=== PATIENT | female | born 1950 | race Caucasian/White ===

== ENCOUNTER 2016-03-14 11:34 | Emergency (ER) | payer OTHER ==
--- NOTE | 2016-03-14 13:16 | REP ---
Noncontrast brain CT study: History: Head injury in a fall. Findings: Digital lateral supervising deputy radiograph is unremarkable. Bone window settings demonstrate an intact bony calvarium. No skull fracture is seen. There is a small scalp hematoma noted at the vertex in the midline posteriorly. The visualized paranasal sinuses are clear. There is mild vascular calcification in the distal carotid arteries bilaterally. There is no evidence of intracranial hemorrhage. No extra-axial fluid collection is seen. No mass, infarct, or midline shift is seen. The santana-white differentiation pattern is normal. Impression: Scalp hematoma at the vertex. No skull fracture or intracranial injury. Some vascular calcification seen. Signed by Ramón Haywood MD 03/14/2016 01:57 P
--- NOTE | 2016-03-14 13:18 | REP ---
Sacrum and coccyx series: Three views. History: Tail bone pain after fall. Findings: Frontal and lateral views of the sacrum and coccyx show a radiolucent line through the lower sacrum consistent with a distal sacral fracture. No displacement is seen. No malalignment. The coccyx appears intact. There is also a fracture of the inferior pubic ramus of the right pelvis. This could be old although it is a new radiographic finding when compared with the right hip study from May 02, 2010. There are degenerative changes in the lower lumbar spine. There is central pelvic calcification consistent with uterine leiomyomatous calcification. Impression: Suspect nondisplaced distal sacral fracture. Right inferior pubic ramus fracture may be old. Signed by Ramón Haywood MD 03/14/2016 01:57 P
--- NOTE | 2016-03-14 13:19 | REP ---
Left wrist series: Four views. History: Injury in a fall. 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 There is mild diffuse osteopenia. No fracture or subluxation is seen. Impression: No fracture noted. Signed by Ramón Haywood MD 03/14/2016 01:57 P
--- NOTE | 2016-03-14 13:55 | EDDOCDS ---
Nurse's Notes [facility] Name: Sharon Moy Age: 65 yrs Sex: Female : 1950 Arrival Date: 03/14/2016 Time: 11:34 Bed PR1 / 25 Private MD: Foster Lynn D Diagnosis: Fall due to ice and snow;Fracture of sacrum-distal, nondisplaced;Abrasion of scalp-with hematoma Presentation: 03/14 11:41 Presenting complaint: Patient states: Slipped and fell. Pain to occipital area, left jo3 wrist and tailbone. Denies anticoagulant use. Adult Sepsis Screening: The patient does not have new or worsening altered mentation. Patient's respiratory rate is less than 22. Systolic blood pressure is greater than 100. Patient has a qSOFA score of 0- Negative Sepsis Screen. Suicide/Homicide risk assessment- the patient denies having any suicidal and/or homicidal ideations and does not present with any other emotional, behavioral or mental health complaints. 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 Transition of care: patient was not received from another setting of care. 11:41 Acuity: SCARLETT Level 4 jo3 11:41 Method Of Arrival: Walkin/Carried/Asstd jo3 Triage Assessment: 11:45 General: Appears in no apparent distress, Behavior is appropriate for age, cooperative. jo3 Pain: Pain currently is 4 out of 10 on a pain scale. At worst was 8 out of 10 on a pain scale. HIV screening NA for this visit Offered previously. Neurological: Level of Consciousness is awake, alert, Oriented to person, place, time. Historical: - Allergies: Amoxicillin; - Home Meds: 1. citalopram 10 mg Oral tab 1 tab once daily - PMHx: Depression; - PSHx: right ankle; - Social history: No barriers to communication noted, The patient speaks fluent Japanese, Speaks appropriately for age, Smoking status: Patient states former smoker of tobacco. - Family history: Not pertinent. - : The pt / caregiver states he / she is not on anticoagulants. Home medication list is obtained from the patient. - Exposure Risk Screening:: None identified. Screenin:38 Screening information is obtained from the patient. Fall risk: No risks identified. ck1 Assistance ADL's: requires no assistance with activities of daily living. Abuse/DV Screen: The patient / caregiver reports he/she is: not in a situation that causes fear, pain or injury. Nutritional screening: No deficits noted. Advance Directives: Currently, there is no health care proxy. home support is adequate. Assessment: 12:37 General: Appears in no apparent distress, Behavior is appropriate for age, cooperative. ck1 Pain: Location: coccyx Pain currently is 7 out of 10 on a pain scale. Aggravated by increased activity. Neurological: Level of Consciousness is awake, alert, obeys commands. Derm: Skin is intact, is healthy with good turgor, Skin is pink, warm & dry. Musculoskeletal: Circulation, motion, and sensation intact Range of motion intact in all extremities. 13:52 Reassessment: patient states she does not have pain in her tailbone if she sits on one kcs buttock.. General: Appears comfortable, well developed, well nourished, well groomed, Behavior is cooperative, pleasant. Pain: Location: coccyx. Neurological: Level of Consciousness is awake, alert. Respiratory: Airway is patent Respiratory effort is even, unlabored, Respiratory pattern is regular, symmetrical. Derm: Skin is intact, is healthy with good turgor, Skin is dry, Skin is normal. Vital Signs: 11:36 BP 162 / 81; Pulse 101; Resp 20; Temp 98.1(O); Pulse Ox 98% on R/A; Weight 77.56 kg elp (R); Height 5 ft. 7 in. (170.18 cm) (R); Pain 7/10; 13:43 BP 155 / 72; Pulse 98; Resp 18; Temp 97.6(O); Pulse Ox 98% on R/A; Pain 5/10; ct3 11:36 Body Mass Index 26.78 (77.56 kg, 170.18 cm) [facility] Vitals: 11:36 Log In Time: March 14, 2016 at 11:20. [facility] ED Course: 11:36 Patient visited by Jacqueline Ken PCA. elp 11:36 Foster Lynn is Private Physician. elp 11:36 Patient moved to Waiting elp 11:37 Patient visited by Jacqueline Ken PCA. elp 11:37 Patient moved to Pre RCE elp 11:43 Triage Initiated jo3 11:46 Patient visited by Karly Olivarez RN. jo3 12:03 Patient moved to Triage 2 kcs 12:15 Rose Wallis PA-C is PHCP. dt4 12:15 Varsha Rodriguez MD is Attending Physician. dt4 12:15 Patient visited by Rose Wallis PA-C. dt4 12:37 Patient moved to TR2 ck1 12:38 The patient / caregiver is instructed regarding the plan of care and ED course. ck1 13:19 CT Head Without Contrast Returned. EDMS 13:19 Sacrum/coccyx Returned. EDMS 13:23 Patient visited by Alexia Olmstead PCA. ct3 13:40 Patient moved to PR1 / 25 ck1 13:43 Patient visited by Alexia Olmstead PCA. ct3 13:52 No IV's were initiated during this patient's visit. No procedures done that require kcs assistance. Order Results: Radiology Order: CT Head Without Contrast Test: CT Head Without Contrast REASON FOR EXAMINATION: HEAD INJURY/FALL; Noncontrast brain CT study:; ; History: Head injury in a fall.; ; Findings: Digital lateral exhibits coordinator radiograph is unremarkable. Bone window; settings demonstrate an intact bony calvarium. No skull fracture is seen. There; is a small scalp hematoma noted at the vertex in the midline posteriorly. The; visualized paranasal sinuses are clear. There is mild vascular calcification in; the distal carotid arteries bilaterally.; ; There is no evidence of intracranial hemorrhage. No extra-axial fluid collection; is seen. No mass, infarct, or midline shift is seen. The santana-white; differentiation pattern is normal.; ; Impression:; ; Scalp hematoma at the vertex. No skull fracture or intracranial injury. Some; vascular calcification seen.; ; ; ; ; Unreviewed; Radiology Order: Sacrum/coccyx Test: Sacrum/coccyx REASON FOR EXAMINATION: FALL ON ICE, TAILBONE PAIN; Sacrum and coccyx series: Three views.; ; History: Tail bone pain after fall.; ; Findings: Frontal and lateral views of the sacrum and coccyx show a radiolucent; line through the lower sacrum consistent with a distal sacral fracture. No; displacement is seen. No malalignment. The coccyx appears intact. There is; also a fracture of the inferior pubic ramus of the right pelvis. This could be; old although it is a new radiographic finding when compared with the right hip; study from May 02, 2010. There are degenerative changes in the lower lumbar; spine. There is central pelvic calcification consistent with uterine; leiomyomatous calcification.; ; Impression:; ; Suspect nondisplaced distal sacral fracture. Right inferior pubic ramus fracture; may be old.; ; ; ; ; Unreviewed; Outcome: 13:39 Discharge ordered by Provider. dt4 13:52 Discharge Assessment: Patient awake, alert and oriented x 3. No cognitive and/or kcs functional deficits noted. Patient verbalized understanding of disposition instructions. Patient awake and alert. patient administered narcotics - no. The following High Risk Discharge criteria are identified: None. Discharged to home ambulatory, with friend. Condition: stable. Discharge instructions given to patient, Instructed on discharge instructions, follow up and referral plans. medication usage, no driving heavy equipment, no drinking with medication, Demonstrated understanding of instructions, medications, Pt was receptive of discharge instructions/ teaching. Prescriptions given X 1. No special radiology studies were completed. Property sent home with patient. 13:55 Patient left the ED. kcs Signatures: Dispatcher [employer] EDMS Soledad Ness RN RN kcs Edith MenjivarRN RN hiram1 Karly OlivarezRN RN [email or web address] Alexia Olmstead, PUBLIC SAFETY POLICE PUBLIC SAFETY POLICE ct3 Jacqueline Ken, PUBLIC SAFETY POLICE PUBLIC SAFETY POLICE elp Rose Wallis, PA-C PA-C dt4 MTDD
--- NOTE | 2016-03-14 13:55 | EDDOCDS ---
Physician Documentation [facility] Name: Sharon Moy Age: 65 yrs Sex: Female : 1950 Arrival Date: 03/14/2016 Time: 11:34 Bed PR1 / 25 Private MD: Foster Lynn D Disposition: 03/14/16 13:39 Discharged to Home/Self Care. Impression: Fall due to ice and snow, Fracture of sacrum - distal, nondisplaced, Abrasion of scalp - with hematoma. - Condition is Stable. - Discharge Instructions: Hematoma. - Prescriptions for Tylenol- Codeine #3 300-30 mg Oral Tablet - take 1 tablet by ORAL route every 6 hours As needed MDD: 4 tabs, MAY CAUSE DROWSINESS.; 15 tablet. - Medication Reconciliation, Local Pharmacy Hours form. - Follow up: Emergency Department; When: As needed; Reason: Worsening of conditions. Follow up: Private Physician; When: 2 - 3 days; Reason: Wound/Symptom Recheck, Recheck today's complaints, Continuance of care. - Problem is new. - Symptoms are unchanged. - Notes: THERE IS A NONDISPLACED SACRUM FRACTURE ON YOUR XRAYS TODAY. THE REST OF YOUR SCANS DID NOT SHOW ANY FRACTUES. PLEASE FOLLOW UP WITH YOUR PRIMARY CARE PROVIDER IN THE NEXT FEW DAYS TO REASSESS YOUR SYMPTOMS. ANY WORSENING SYMPTOMS, PLEASE RETURN TO THE ER. Historical: - Allergies: Amoxicillin; - Home Meds: 1. citalopram 10 mg Oral tab 1 tab once daily - PMHx: Depression; - PSHx: right ankle; - Social history: No barriers to communication noted, The patient speaks fluent Finnish, Speaks appropriately for age, Smoking status: Patient states former smoker of tobacco. - Family history: Not pertinent. - : The pt / caregiver states he / she is not on anticoagulants. Home medication list is obtained from the patient. - Exposure Risk Screening:: None identified. Vital Signs: 03/14 11:36 BP 162 / 81; Pulse 101; Resp 20; Temp 98.1(O); Pulse Ox 98% on R/A; Weight 77.56 kg / elp 170.99 lbs (R); Height 5 ft. 7 in. (170.18 cm) (R); Pain 7/10; 13:43 BP 155 / 72; Pulse 98; Resp 18; Temp 97.6(O); Pulse Ox 98% on R/A; Pain 5/10; ct3 11:36 Body Mass Index 26.78 (77.56 kg, 170.18 cm) elp MDM: 12:36 CT Head Without Contrast Ordered. EDMS 12:36 Wrist, Complete Ordered. EDMS 12:38 Sacrum/coccyx Ordered. EDMS Signatures: Dispatcher [employer] EDSoledad Maldonado RN RN kcs Helmerci, Jennifer, RN RN jo3 Rose Wallis, PA-Marisol PA-C dt4 MTDD
--- NOTE | 2016-03-16 14:56 | EDDOCDS ---
Physician Documentation [facility] Name: Sharon Moy Age: 65 yrs Sex: Female : 1950 Arrival Date: 03/14/2016 Time: 11:34 Bed PR1 / 25 Private MD: Foster Lynn D Disposition: 03/14/16 13:39 Discharged to Home/Self Care. Impression: Fall due to ice and snow, Fracture of sacrum - distal, nondisplaced, Abrasion of scalp - with hematoma. - Condition is Stable. - Discharge Instructions: Hematoma. - Prescriptions for Tylenol- Codeine #3 300-30 mg Oral Tablet - take 1 tablet by ORAL route every 6 hours As needed MDD: 4 tabs, MAY CAUSE DROWSINESS.; 15 tablet. - Medication Reconciliation, Local Pharmacy Hours form. - Follow up: Emergency Department; When: As needed; Reason: Worsening of conditions. Follow up: Private Physician; When: 2 - 3 days; Reason: Wound/Symptom Recheck, Recheck today's complaints, Continuance of care. - Problem is new. - Symptoms are unchanged. - Notes: THERE IS A NONDISPLACED SACRUM FRACTURE ON YOUR XRAYS TODAY. THE REST OF YOUR SCANS DID NOT SHOW ANY FRACTUES. PLEASE FOLLOW UP WITH YOUR PRIMARY CARE PROVIDER IN THE NEXT FEW DAYS TO REASSESS YOUR SYMPTOMS. ANY WORSENING SYMPTOMS, PLEASE RETURN TO THE ER. Historical: - Allergies: Amoxicillin; - Home Meds: 1. citalopram 10 mg Oral tab 1 tab once daily - PMHx: Depression; - PSHx: right ankle; - Social history: No barriers to communication noted, The patient speaks fluent Cambodian, Speaks appropriately for age, Smoking status: Patient states former smoker of tobacco. - Family history: Not pertinent. - : The pt / caregiver states he / she is not on anticoagulants. Home medication list is obtained from the patient. - Exposure Risk Screening:: None identified. Vital Signs: 03/14 11:36 BP 162 / 81; Pulse 101; Resp 20; Temp 98.1(O); Pulse Ox 98% on R/A; Weight 77.56 kg / elp 170.99 lbs (R); Height 5 ft. 7 in. (170.18 cm) (R); Pain 7/10; 13:43 BP 155 / 72; Pulse 98; Resp 18; Temp 97.6(O); Pulse Ox 98% on R/A; Pain 5/10; ct3 11:36 Body Mass Index 26.78 (77.56 kg, 170.18 cm) elp MDM: 12:36 CT Head Without Contrast Ordered. EDMS 12:36 Wrist, Complete Ordered. EDMS 12:38 Sacrum/coccyx Ordered. EDMS 14:04 Financial registration complete. mm15 14:05 [facility] Payment Agreement was scanned into [employer] and attached to record. mm15 14:56 T-Sheet-- Draft Copy was scanned into [employer] and attached to record. gb 14:57 Radiology Report was scanned into [employer] and attached to record. gb Signatures: Dispatcher [employer] EDSoledad Maldonado, TOMÁS RN Vianey Matute, Reg Reg gb Karly Olivarez RN RN jo3 McGrath, Marlynn mm15 Rose Wallis PA-C PA-C dt4 The chart was reviewed and I authenticate all verbal orders and agree with the evaluation and treatment provided.Attachments: 14:05 [facility] Payment Agreement mm15 14:56 T-Sheet-- Draft Copy gb Chart Complete MTDD
--- NOTE | 2016-03-16 14:56 | EDDOCDS ---
Physician Documentation [facility] Name: Sharon Moy Age: 65 yrs Sex: Female : 1950 Arrival Date: 03/14/2016 Time: 11:34 Bed PR1 / 25 Private MD: Foster Lynn D Disposition: 03/14/16 13:39 Discharged to Home/Self Care. Impression: Fall due to ice and snow, Fracture of sacrum - distal, nondisplaced, Abrasion of scalp - with hematoma. - Condition is Stable. - Discharge Instructions: Hematoma. - Prescriptions for Tylenol- Codeine #3 300-30 mg Oral Tablet - take 1 tablet by ORAL route every 6 hours As needed MDD: 4 tabs, MAY CAUSE DROWSINESS.; 15 tablet. - Medication Reconciliation, Local Pharmacy Hours form. - Follow up: Emergency Department; When: As needed; Reason: Worsening of conditions. Follow up: Private Physician; When: 2 - 3 days; Reason: Wound/Symptom Recheck, Recheck today's complaints, Continuance of care. - Problem is new. - Symptoms are unchanged. - Notes: THERE IS A NONDISPLACED SACRUM FRACTURE ON YOUR XRAYS TODAY. THE REST OF YOUR SCANS DID NOT SHOW ANY FRACTUES. PLEASE FOLLOW UP WITH YOUR PRIMARY CARE PROVIDER IN THE NEXT FEW DAYS TO REASSESS YOUR SYMPTOMS. ANY WORSENING SYMPTOMS, PLEASE RETURN TO THE ER. Historical: - Allergies: Amoxicillin; - Home Meds: 1. citalopram 10 mg Oral tab 1 tab once daily - PMHx: Depression; - PSHx: right ankle; - Social history: No barriers to communication noted, The patient speaks fluent Belgian, Speaks appropriately for age, Smoking status: Patient states former smoker of tobacco. - Family history: Not pertinent. - : The pt / caregiver states he / she is not on anticoagulants. Home medication list is obtained from the patient. - Exposure Risk Screening:: None identified. Vital Signs: 03/14 11:36 BP 162 / 81; Pulse 101; Resp 20; Temp 98.1(O); Pulse Ox 98% on R/A; Weight 77.56 kg / elp 170.99 lbs (R); Height 5 ft. 7 in. (170.18 cm) (R); Pain 7/10; 13:43 BP 155 / 72; Pulse 98; Resp 18; Temp 97.6(O); Pulse Ox 98% on R/A; Pain 5/10; ct3 11:36 Body Mass Index 26.78 (77.56 kg, 170.18 cm) elp MDM: 12:36 CT Head Without Contrast Ordered. EDMS 12:36 Wrist, Complete Ordered. EDMS 12:38 Sacrum/coccyx Ordered. EDMS 14:04 Financial registration complete. mm15 14:05 [facility] Payment Agreement was scanned into [employer] and attached to record. mm15 14:56 T-Sheet-- Draft Copy was scanned into [employer] and attached to record. gb 14:57 Radiology Report was scanned into [employer] and attached to record. gb Signatures: Dispatcher [employer] EDSoledad Maldonado, TOMÁS RN Vianey Matute, Reg Reg gb Karly Olivarez RN RN jo3 McGrath, Marlynn mm15 Rose Wallis PA-C PA-C dt4 The chart was reviewed and I authenticate all verbal orders and agree with the evaluation and treatment provided.Attachments: 14:05 [facility] Payment Agreement mm15 14:56 T-Sheet-- Draft Copy gb Chart Complete MTDD
--- NOTE | 2016-03-16 14:56 | EDDOCDS ---
Nurse's Notes [facility] Name: Sharon Moy Age: 65 yrs Sex: Female : 1950 Arrival Date: 03/14/2016 Time: 11:34 Bed PR1 / 25 Private MD: Foster Lynn D Diagnosis: Fall due to ice and snow;Fracture of sacrum-distal, nondisplaced;Abrasion of scalp-with hematoma Presentation: 03/14 11:41 Presenting complaint: Patient states: Slipped and fell. Pain to occipital area, left jo3 wrist and tailbone. Denies anticoagulant use. Adult Sepsis Screening: The patient does not have new or worsening altered mentation. Patient's respiratory rate is less than 22. Systolic blood pressure is greater than 100. Patient has a qSOFA score of 0- Negative Sepsis Screen. Suicide/Homicide risk assessment- the patient denies having any suicidal and/or homicidal ideations and does not present with any other emotional, behavioral or mental health complaints. Status: Patient is not a director of child welfare services or dependent. Transition of care: patient was not received from another setting of care. 11:41 Acuity: SCARLETT Level 4 jo3 11:41 Method Of Arrival: Walkin/Carried/Asstd jo3 Triage Assessment: 11:45 General: Appears in no apparent distress, Behavior is appropriate for age, cooperative. jo3 Pain: Pain currently is 4 out of 10 on a pain scale. At worst was 8 out of 10 on a pain scale. HIV screening NA for this visit Offered previously. Neurological: Level of Consciousness is awake, alert, Oriented to person, place, time. Historical: - Allergies: Amoxicillin; - Home Meds: 1. citalopram 10 mg Oral tab 1 tab once daily - PMHx: Depression; - PSHx: right ankle; - Social history: No barriers to communication noted, The patient speaks fluent Syriac, Speaks appropriately for age, Smoking status: Patient states former smoker of tobacco. - Family history: Not pertinent. - : The pt / caregiver states he / she is not on anticoagulants. Home medication list is obtained from the patient. - Exposure Risk Screening:: None identified. Screenin:38 Screening information is obtained from the patient. Fall risk: No risks identified. ck1 Assistance ADL's: requires no assistance with activities of daily living. Abuse/DV Screen: The patient / caregiver reports he/she is: not in a situation that causes fear, pain or injury. Nutritional screening: No deficits noted. Advance Directives: Currently, there is no health care proxy. home support is adequate. Assessment: 12:37 General: Appears in no apparent distress, Behavior is appropriate for age, cooperative. ck1 Pain: Location: coccyx Pain currently is 7 out of 10 on a pain scale. Aggravated by increased activity. Neurological: Level of Consciousness is awake, alert, obeys commands. Derm: Skin is intact, is healthy with good turgor, Skin is pink, warm & dry. Musculoskeletal: Circulation, motion, and sensation intact Range of motion intact in all extremities. 13:52 Reassessment: patient states she does not have pain in her tailbone if she sits on one kcs buttock.. General: Appears comfortable, well developed, well nourished, well groomed, Behavior is cooperative, pleasant. Pain: Location: coccyx. Neurological: Level of Consciousness is awake, alert. Respiratory: Airway is patent Respiratory effort is even, unlabored, Respiratory pattern is regular, symmetrical. Derm: Skin is intact, is healthy with good turgor, Skin is dry, Skin is normal. Vital Signs: 11:36 BP 162 / 81; Pulse 101; Resp 20; Temp 98.1(O); Pulse Ox 98% on R/A; Weight 77.56 kg elp (R); Height 5 ft. 7 in. (170.18 cm) (R); Pain 7/10; 13:43 BP 155 / 72; Pulse 98; Resp 18; Temp 97.6(O); Pulse Ox 98% on R/A; Pain 5/10; ct3 11:36 Body Mass Index 26.78 (77.56 kg, 170.18 cm) [facility] Vitals: 11:36 Log In Time: March 14, 2016 at 11:20. [facility] ED Course: 11:36 Patient visited by Jacqueline Ken PCA. elp 11:36 Foster Lynn is Private Physician. elp 11:36 Patient moved to Waiting elp 11:37 Patient visited by Jacqueline Ken PCA. elp 11:37 Patient moved to Pre RCE elp 11:43 Triage Initiated jo3 11:46 Patient visited by Karly Olivarez RN. jo3 12:03 Patient moved to Triage 2 kcs 12:15 Rose Wallis PA-C is PHCP. dt4 12:15 Varsha Rodriguez MD is Attending Physician. dt4 12:15 Patient visited by Rose Wallis PA-C. dt4 12:37 Patient moved to TR2 ck1 12:38 The patient / caregiver is instructed regarding the plan of care and ED course. ck1 13:19 CT Head Without Contrast Returned. EDMS 13:19 Sacrum/coccyx Returned. EDMS 13:23 Patient visited by Alexia Olmstead PCA. ct3 13:40 Patient moved to PR1 / 25 ck1 13:43 Patient visited by Alexia Olmstead PCA. ct3 13:52 No IV's were initiated during this patient's visit. No procedures done that require kcs assistance. 14:05 [facility] Payment Agreement was scanned into [employer] and attached to record. mm15 14:07 Wrist, Complete Returned. EDMS 14:56 T-Sheet-- Draft Copy was scanned into [employer] and attached to record. gb 14:57 Radiology Report was scanned into [employer] and attached to record. 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 Bone window; settings demonstrate an intact bony calvarium. No skull fracture is seen. There; is a small scalp hematoma noted at the vertex in the midline posteriorly. The; visualized paranasal sinuses are clear. There is mild vascular calcification in; the distal carotid arteries bilaterally.; ; There is no evidence of intracranial hemorrhage. No extra-axial fluid collection; is seen. No mass, infarct, or midline shift is seen. The santana-white; differentiation pattern is normal.; ; Impression:; ; Scalp hematoma at the vertex. No skull fracture or intracranial injury. Some; vascular calcification seen.; ; ; Signed by; Ramón Haywood MD 03/14/2016 01:57 P; Radiology Order: Wrist, Complete Test: Wrist, Complete REASON FOR EXAMINATION: FALL ON ICE, LEFT WRIST PAIN; Left wrist series: Four views.; ; History: Injury in a fall.; ; Findings: Four views of the left wrist demonstrate mild osteoarthritic narrowing; of the navicular multangular articulation. There is mild diffuse osteopenia. No; fracture or subluxation is seen.; ; Impression:; ; No fracture noted.; ; ; Signed by; Ramón Haywood MD 03/14/2016 01:57 P; Radiology Order: Sacrum/coccyx Test: Sacrum/coccyx REASON FOR EXAMINATION: FALL ON ICE, TAILBONE PAIN; Sacrum and coccyx series: Three views.; ; History: Tail bone pain after fall.; ; Findings: Frontal and lateral views of the sacrum and coccyx show a radiolucent; line through the lower sacrum consistent with a distal sacral fracture. No; displacement is seen. No malalignment. The coccyx appears intact. There is; also a fracture of the inferior pubic ramus of the right pelvis. This could be; old although it is a new radiographic finding when compared with the right hip; study from May 02, 2010. There are degenerative changes in the lower lumbar; spine. There is central pelvic calcification consistent with uterine; leiomyomatous calcification.; ; Impression:; ; Suspect nondisplaced distal sacral fracture. Right inferior pubic ramus fracture; may be old.; ; ; Signed by; Ramón Haywood MD 03/14/2016 01:57 P; Outcome: 13:39 Discharge ordered by Provider. dt4 13:52 Discharge Assessment: Patient awake, alert and oriented x 3. No cognitive and/or kcs functional deficits noted. Patient verbalized understanding of disposition instructions. Patient awake and alert. patient administered narcotics - no. The following High Risk Discharge criteria are identified: None. Discharged to home ambulatory, with friend. Condition: stable. Discharge instructions given to patient, Instructed on discharge instructions, follow up and referral plans. medication usage, no driving heavy equipment, no drinking with medication, Demonstrated understanding of instructions, medications, Pt was receptive of discharge instructions/ teaching. Prescriptions given X 1. No special radiology studies were completed. Property sent home with patient. 13:55 Patient left the ED. kcs Signatures: Dispatcher [facility] Soledad Krishnan RN RN Vianey Matute, Reg Reg Edith Redmond RN RN ck1 Karly Olviarez,RN RN jo3 Alexia Olmstead, CEMENT CAR DUMPER CEMENT CAR DUMPER ct3 Yocasta Marte mm15 Jacqueline Ken, CEMENT CAR DUMPER CEMENT CAR DUMPER elp Rose Wallis, PA-C PA-C dt4 Chart Complete MTDD
== END 2016-03-14 13:55 | disposition home or self-care (01) ==
LOC: M ED 11:34
DX: S32.10XA Unspecified fracture of sacrum, initial encounter for closed fracture (principal); S00.03XA Contusion of scalp, initial encounter; S00.01XA Abrasion of scalp, initial encounter; W00.0XXA Fall on same level due to ice and snow, initial encounter; Y92.242 Post office as the place of occurrence of the external cause; Y93.89 Activity, other specified; Y99.8 Other external cause status; F32.9 Major depressive disorder, single episode, unspecified; Z79.899 Other long term (current) drug therapy; Z88.0 Allergy status to penicillin

== ENCOUNTER → 2016-05-16 | Outpatient (CLI) | payer OTHER ==
--- NOTE | 2016-05-16 17:23 | REPMRS ---
Patient History The patient states she had a clinical breast exam in 03/29 Patient is postmenopausal, has history of other cancer at age 60, and is nulliparous. Family history of unknown cancer in father at age 69, unknown cancer in maternal grandfather at age 50 or over, unknown cancer in maternal grandmother at age 44, and unknown cancer in paternal uncle at age 50 or over. Silicone gel implants in both breasts, 1988. Took hormonal contraceptives for 8 years. Digital Woman Screen Mammo: May 16, 2016 - Exam #: [id number] Bilateral CC and MLO view(s) were taken. Technologist: Nadia Estrada, Technologist Prior study comparison: January 25, 2015, bilateral digital mammo screening bilat, performed at [facility]. October 07, 2013, bilateral bilat screen digital mammo, performed at [facility] ([facility]). FINDINGS: There are scattered fibroglandular densities. The visualized implant margins are smooth. Breast parenchymal density pattern is essentially symmetric. No dominant mass, clustered microcalcification, or archetectural distortion is evident on either side. No significant changes when compared with prior studies. ASSESSMENT: BI-RADS/ACR category 2 mammogram. Benign finding(s). Recommendation Routine screening mammogram of both breasts in 1 year (for women over age 40). Electronically Signed By: Ron Haywood MD 05/16/16 1835
== END ==
LOC: M WHC 13:58
PROVIDERS: ATTEND Nurse Practitioner
DX: Z12.39 Encounter for other screening for malignant neoplasm of breast (principal); Z78.0 Asymptomatic menopausal state; Z92.0 Personal history of contraception; R92.8 Other abnormal and inconclusive findings on diagnostic imaging of breast

== ENCOUNTER → 2018-11-03 | Outpatient (CLI) | payer MEDICARE, OTHER ==
[2018-11-03 17:32] LABS: BLOOD UREA NITROGEN 19 MG/DL (7-18); CREATININE FOR GFR 0.66 MG/DL (0.55-1.30); GLOMERULAR FILTRATION RATE > 60.0 (>45); GLUCOSE, FASTING 98 MG/DL (70-100)
[2018-11-03 17:33] LABS: CALCIUM LEVEL 9.3 MG/DL (8.8-10.2); CARBON DIOXIDE LEVEL 27 MEQ/L (21-32); CHLORIDE LEVEL 104 MEQ/L (98-107); POTASSIUM SERUM 4.2 MEQ/L (3.5-5.1); SODIUM LEVEL 140 MEQ/L (136-145)
--- NOTE | 2018-11-04 06:08 | ECGEPIP ---
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
== END ==
LOC: M LAB 15:48
PROVIDERS: ATTEND Ophthalmology Retina Specialist
DX: H33.059 Total retinal detachment, unspecified eye (principal)

== ENCOUNTER → 2019-06-24 | Outpatient (CLI) | payer MEDICARE, OTHER ==
--- NOTE | 2019-06-24 11:02 | REP ---
LOW-DOSE LUNG SCREENING CT: Low-dose lung screening CT exam is performed. There are no prior studies for comparison. Mild scattered interstitial fibrotic change is seen bilaterally. Small calcified granuloma is seen in each lung base. No suspicious nodule is seen bilaterally. The heart is not enlarged. No pleural effusion is seen. The mediastinal contour appears unremarkable. There are bilateral breast implants. There are degenerative changes of the spine. IMPRESSION: Lung RADS category 2 benign findings. No suspicious nodule is seen in either lung. Recommend followup exam in 1 year. Electronically Signed by Alessandro Davila MD 06/24/2019 12:56 P
== END ==
LOC: M RAD 09:30
PROVIDERS: ATTEND Family Medicine
DX: F17.210 Nicotine dependence, cigarettes, uncomplicated (principal)

== ENCOUNTER → 2019-09-04 | Outpatient (REF) | payer MEDICARE, OTHER ==
[2019-09-30 14:08] LABS: AMORPHOUS SEDIMENT SMALL (NEGATIVE); BACTERIA, URINE AUTO 1+ (NEGATIVE); CALCIUM OXALATE CRYSTALS SMALL; MUCUS, URINE SMALL (NEGATIVE); RBC, URINE AUTO 5 /HPF (0-3); SQUAMOUS EPITHELIAL CELL UR AU 2 /HPF (0-6); WBC, URINE AUTO 4 /HPF (0-3)
== END ==
LOC: M LAB REF 07:35
PROVIDERS: ATTEND Nurse Practitioner Family
DX: R19.7 Diarrhea, unspecified (principal); R50.9 Fever, unspecified; R31.9 Hematuria, unspecified

== ENCOUNTER → 2019-10-15 | Outpatient (CLI) | payer MEDICARE, OTHER ==
--- NOTE | 2019-10-15 11:48 | REPMRS ---
Patient History The patient states she has not had a clinical breast exam in over a year. Patient is postmenopausal, has history of other cancer at age 60, and is nulliparous. Family history of pancreatic cancer at age 80 in paternal uncle. Silicone gel implants in both breasts, 1988. Took hormonal contraceptives for 8 years. 3D TOMOSYNTHESIS WAS PERFORMED. [facility] lifetime risk for breast cancer is 8.0%. VOLPARA DENSITY C. Digital Woman Screen Mammo: October 15, 2019 - Exam #: [id number] Bilateral CC and MLO view(s) were taken. Technologist: Jovana Frey, Technologist Prior study comparison: May 16, 2016, digital woman screen mammo performed at [facility]. January 25, 2015, bilateral digital mammo screening bilat, performed at [facility]. FINDINGS: There are scattered fibroglandular densities. There has been no change in the appearance of the mammogram from the prior studies. There is a mild amount of residual fibroglandular tissue which is fairly symmetric. There is no interval development of dominant mass, architectural distortion, or clustered microcalcification suggestive of malignancy. Bilateral implants are grossly intact. Assessment: BI-RADS/ACR category 1 mammogram. Negative Mammogram. Recommendation Routine screening mammogram in 1 year (for women over age 40). This mammogram was interpreted with the aid of an FDA-approved computer-aided dectection system. Electronically Signed By: Alessandro Davila MD 10/15/19 2544
== END ==
LOC: M WHC 09:54
PROVIDERS: ATTEND Family Medicine
DX: Z12.31 Encounter for screening mammogram for malignant neoplasm of breast (principal)

== ENCOUNTER → 2019-11-09 | Outpatient (REF) | payer MEDICARE, OTHER ==
[2019-11-09 13:30] LABS: HEMOGLOBIN A1c 6.8 %
[2019-11-09 18:18] LABS: ALBUMIN 3.8 GM/DL (3.2-5.2); ALT/SGPT 34 U/L (12-78); BILIRUBIN,TOTAL 0.5 MG/DL (0.2-1.0); BLOOD UREA NITROGEN 22 MG/DL (7-18); CALCIUM LEVEL 9.3 MG/DL (8.8-10.2); CARBON DIOXIDE LEVEL 25 MEQ/L (21-32); CHLORIDE LEVEL 106 MEQ/L (98-107); CHOLESTEROL LEVEL 251 MG/DL (<200); GLOMERULAR FILTRATION RATE > 60.0 (>45); GLUCOSE, FASTING 127 MG/DL (70-100); HDL CHOLESTEROL 47 MG/DL (>40); LDL CHOLESTEROL 158 MG/DL (<100); NON-HDL-C 204 MG/DL; POTASSIUM SERUM 4.6 MEQ/L (3.5-5.1); SODIUM LEVEL 139 MEQ/L (136-145); TRIGLYCERIDES LEVEL 228 MG/DL (<150)
== END ==
LOC: M SFHCCLAY 11:24
PROVIDERS: ATTEND Family Medicine
DX: M85.9 Disorder of bone density and structure, unspecified (principal); R03.0 Elevated blood-pressure reading, without diagnosis of hypertension; N95.1 Menopausal and female climacteric states; Z83.3 Family history of diabetes mellitus; Z79.899 Other long term (current) drug therapy; Z23 Encounter for immunization
CPT/HCPCS: 36415; 80053; 80061; 83036; 90682; 90732; G0008; G0009; G0463

== ENCOUNTER → 2019-12-30 | Outpatient (CLI) | payer MEDICARE, OTHER ==
[2019-12-30 13:56] LABS: CHOLESTEROL RISK RATIO 2.406 (<5)
== END ==
LOC: M WUC 09:08
PROVIDERS: ATTEND Family Medicine
DX: E78.2 Mixed hyperlipidemia (principal)

== ENCOUNTER → 2020-02-14 | Outpatient (CLI) | payer SELFPAY | LOC: M LABSMTC 09:49 | PROVIDERS: ATTEND Pediatrics | DX: Z20.828 Contact with and (suspected) exposure to other viral communicable diseases (principal) ==

== ENCOUNTER → 2020-07-11 | Outpatient (CLI) | payer MEDICARE, OTHER ==
[2020-07-11 13:01] LABS: HEMOGLOBIN A1c 5.9 %
[2020-07-11 13:08] LABS: BLOOD UREA NITROGEN 17 MG/DL (7-18); CARBON DIOXIDE LEVEL 29 MEQ/L (21-32); CHLORIDE LEVEL 107 MEQ/L (98-107); CREATININE FOR GFR 0.59 MG/DL (0.55-1.30); GLOMERULAR FILTRATION RATE > 60.0 (>45); GLUCOSE, FASTING 146 MG/DL (70-100); POTASSIUM SERUM 4.2 MEQ/L (3.5-5.1); SODIUM LEVEL 142 MEQ/L (136-145)
== END ==
LOC: M WUC 09:33
PROVIDERS: ATTEND Family Medicine
DX: E78.00 Pure hypercholesterolemia, unspecified (principal); E11.9 Type 2 diabetes mellitus without complications; F41.9 Anxiety disorder, unspecified

== ENCOUNTER → 2020-07-13 | Outpatient (CLI) | payer MEDICARE, OTHER ==
--- NOTE | 2020-07-13 16:16 | REP ---
INDICATION: SMOKING HX, LUNG CANCER SCREENING. COMPARISON: 06/24/2019 TECHNIQUE: Axial noncontrast images from the thoracic inlet to the upper abdomen using low-dose lung screening technique (LDCT). As per the protocol only lung window images were sent to the read station for interpretation. FINDINGS: There is a small stable amount of biapical pleuroparenchymal scarring. There is no significant change in the appearance of the lung light. No new abnormal nodules, masses, or opacities have developed. There is mild stable cylindrical bronchiectasis status quo. Grossly, the mediastinum and pulmonary christ are unchanged. Grossly, the imaged upper abdomen and imaged osseous structures are unchanged. IMPRESSION: Stable lung rads category 2 low-dose screening CT examination of the lungs. As per the revised Fleischner society criteria recommendation is for follow-up in 1 year. <Electronically signed by Won Valentin > 07/13/20 0180
== END ==
LOC: M RAD 15:37
PROVIDERS: ATTEND Family Medicine
DX: Z12.2 Encounter for screening for malignant neoplasm of respiratory organs (principal); Z87.891 Personal history of nicotine dependence

== ENCOUNTER → 2021-02-14 | Outpatient (CLI) | payer MEDICARE, OTHER ==
--- NOTE | 2021-02-14 13:58 | REPMRS ---
Patient History The patient states she has not had a clinical breast exam in over a year. Patient is postmenopausal, has history of other cancer at age 60, and is nulliparous. Family history of pancreatic cancer at age 80 in paternal uncle. Silicone gel implants in both breasts, 1987. Took hormonal contraceptives for 8 years. Tomosynthesis is performed. Volpara [facility] 17 lb intentional weight loss. Covid vaccines 02/21/20 left arm. 03/23/20 left arm. 11/2020 left arm. Patient states no breast complaints today. Patient has signed MRS History Sheet. Digital Woman Screen Mammo: February 14, 2021 - Exam #: [id number] Bilateral CC and MLO view(s) were taken. Technologist: RT Claudia Prior study comparison: October 15, 2019, bilateral digital woman screen mammo performed at [facility]. May 16, 2016, digital woman screen mammo performed at [facility]. FINDINGS: There are scattered fibroglandular densities. There has been no change in the appearance of the mammogram from the prior studies. There is a mild amount of residual fibroglandular tissue which is fairly symmetric. There is no interval development of dominant mass, architectural distortion, or clustered microcalcification suggestive of malignancy. Assessment: BI-RADS/ACR category 1 mammogram. Negative Mammogram. Recommendation Routine screening mammogram in 1 year (for women over age 40). This mammogram was interpreted with the aid of an FDA-approved computer-aided dectection system. Electronically Signed By: Alessandro Davila MD 02/14/21 1431
== END ==
LOC: M WHC 12:33
PROVIDERS: ATTEND Family Medicine
DX: Z12.31 Encounter for screening mammogram for malignant neoplasm of breast (principal)

== ENCOUNTER → 2021-08-06 | Outpatient (CLI) | payer MEDICARE, OTHER ==
[~2021-08-06] MED LIST: ATOR40TA75 PO; LEXA1TAB PO; MULT-90 PO; ZZZQ25CA PO
== END ==
LOC: M LABSMTC 10:08
PROVIDERS: ATTEND Anesthesiology
DX: Z20.828 Contact with and (suspected) exposure to other viral communicable diseases (principal); Z11.59 Encounter for screening for other viral diseases

== ENCOUNTER 2021-08-10 07:35 | Day surgery (SDC) | payer MEDICARE, OTHER ==
[~2021-08-10] VITALS: Ht 170.2 cm; Wt 72.0 kg
[~2021-08-10 07:35] MED LIST changes: +NS 1,000 ML IV ONE
[2021-08-10] MEDS ORDERED: propofoL 200 MG/20 ML VIAL As Ordered ONE (08:36)
[2021-08-10] MEDS ORDERED: LIDOCAINE 2% MDV 20ML VIAL As Ordered ONE (08:36)
[2021-08-10] MEDS ORDERED: GLUCAGON INJ 1MG VIAL As Ordered ONE (09:37)
[2021-08-10 10:07] VITALS: BP 131/55
== END 2021-08-10 10:15 | disposition home or self-care (01) ==
LOC: M OPP 07:35
PROVIDERS: ATTEND Internal Medicine Gastroenterology
DX: Z12.11 Encounter for screening for malignant neoplasm of colon (principal); Z86.010 Personal history of colon polyps; D12.3 Benign neoplasm of transverse colon; K57.30 Diverticulosis of large intestine without perforation or abscess without bleeding; K64.8 Other hemorrhoids; Z87.891 Personal history of nicotine dependence; Z79.02 Long term (current) use of antithrombotics/antiplatelets; Z79.899 Other long term (current) drug therapy; Z88.0 Allergy status to penicillin
CPT/HCPCS: 45385; 88305; J1610

== ENCOUNTER → 2022-07-18 | Outpatient (CLI) | payer MEDICARE, OTHER ==
[~2022-07-18] MED LIST changes: -NS 1,000 ML IV ONE
== END ==
LOC: M WHC 13:25
PROVIDERS: ATTEND Family Medicine
DX: Z12.31 Encounter for screening mammogram for malignant neoplasm of breast (principal); Z98.82 Breast implant status

== ENCOUNTER → 2022-11-18 | Outpatient (CLI) | payer MEDICARE, OTHER ==
[2022-11-18 12:31] LABS: CREATININE, URINE 103.4 MG/DL
[2022-11-18 12:32] LABS: ALBUMIN 3.8 G/DL (3.2-5.2); ALKALINE PHOSPHATASE 103 U/L (46-116); ALT/SGPT 26 U/L (7.0-40); AST/SGOT 17 U/L (<34); BILIRUBIN,TOTAL 0.6 MG/DL (0.3-1.2); BLOOD UREA NITROGEN 17 MG/DL (9-23); CALCIUM LEVEL 9.1 MG/DL (8.3-10.6); CARBON DIOXIDE LEVEL 29 MMOL/L (20-31); CHLORIDE LEVEL 108 MMOL/L (98-107); CHOLESTEROL LEVEL 146 MG/DL (<200); CHOLESTEROL RISK RATIO 2.84 (<5); CREATININE FOR GFR 0.58 MG/DL (0.55-1.30); GLOMERULAR FILTRATION RATE > 60.0 (>39); GLUCOSE, FASTING 148 MG/DL (74-106); HDL CHOLESTEROL 51.4 MG/DL (>40); LDL CHOLESTEROL 73.4 MG/DL (<100); MAU/CREAT RATIO 7.7 MCG/MG (0.0-30.0); NON-HDL-C 94.6 MG/DL; POTASSIUM SERUM 4.5 MMOL/L (3.5-5.1); SODIUM LEVEL 142 MMOL/L (136-145); TOTAL PROTEIN 6.3 G/DL (5.7-8.2); TRIGLYCERIDES LEVEL 106 MG/DL (<150)
== END ==
LOC: M WUC 08:44
PROVIDERS: ATTEND Family Medicine
DX: E11.9 Type 2 diabetes mellitus without complications (principal); E78.00 Pure hypercholesterolemia, unspecified

== ENCOUNTER → 2023-07-15 | Outpatient (CLI) | payer MEDICARE, OTHER | LOC: M WHC 15:47 | PROVIDERS: ATTEND Family Medicine | DX: Z12.31 Encounter for screening mammogram for malignant neoplasm of breast (principal) ==

== ENCOUNTER → 2024-01-20 | Outpatient (REF) | payer MEDICARE, OTHER | LOC: M SFHCDERM 13:18 | PROVIDERS: ATTEND Physician Assistant | DX: D18.01 Hemangioma of skin and subcutaneous tissue (principal) ==

== ENCOUNTER → 2024-02-16 | Outpatient (CLI) | payer MEDICARE, OTHER | LOC: M WHC 16:30 | PROVIDERS: ATTEND Physician Assistant | DX: Z12.31 Encounter for screening mammogram for malignant neoplasm of breast (principal) ==

== ENCOUNTER → 2024-08-19 | Outpatient (REF) | payer MEDICARE, OTHER ==
[2024-08-19 13:28] LABS: ALT/SGPT 23 U/L (7.0-40); AST/SGOT 19 U/L (<34); CALCIUM LEVEL 9.4 MG/DL (8.3-10.6); CARBON DIOXIDE LEVEL 28 MMOL/L (20-31); CHLORIDE LEVEL 106 MMOL/L (98-107); CHOLESTEROL LEVEL 156 MG/DL (<200); CHOLESTEROL RISK RATIO 2.82 (<5); CREATININE FOR GFR 0.62 MG/DL (0.55-1.30); GLOMERULAR FILTRATION RATE > 90.0 (>39); LDL CHOLESTEROL 78.3 MG/DL (<100); NON-HDL-C 100.7 MG/DL; POTASSIUM SERUM 4.6 MMOL/L (3.5-5.1); SODIUM LEVEL 144 MMOL/L (136-145); TRIGLYCERIDES LEVEL 112 MG/DL (<150)
[2024-08-19 13:38] LABS: ESTIMATED AVERAGE GLUCOSE 131.0 MG/DL (60-110)
== END ==
LOC: M SFHCCLAY 09:09
PROVIDERS: ATTEND Physician Assistant
DX: Z00.00 Encounter for general adult medical examination without abnormal findings (principal); E78.00 Pure hypercholesterolemia, unspecified; F32.9 Major depressive disorder, single episode, unspecified; R73.01 Impaired fasting glucose; Z12.31 Encounter for screening mammogram for malignant neoplasm of breast; N95.8 Other specified menopausal and perimenopausal disorders